=== PATIENT | female | born 1975 ===

== ENCOUNTER 2021-02-05 06:14 | Observation (INO) ==
[~2021-02-05 06:14] MED LIST: Buffered Lidocaine 1% SYRIN 1 ml INTRADERM ONE; Lactated Ringers 1000 ml BAG 1,000 ML IV SCH
[2021-02-05] MEDS ORDERED: ceFAZolin 2 GM PREMIX 2 GM/50 ML BAG ONE (06:46)
[2021-02-05] MEDS ORDERED: Lidocaine 2% PF 5 ML VIAL ONE (07:05)
[2021-02-05] MEDS ORDERED: Propofol 0 MG/0 ML BTL ONE (07:05)
[2021-02-05] MEDS ORDERED: Phenylephrine IV 10 MG/ML 1 ml VIAL ONE ×2 (07:11→07:12)
[2021-02-05] MEDS ORDERED: EPINEPHrine SYR 0.1MG/ML 10 ml SYRINGE ONE (07:11)
[2021-02-05] MEDS ORDERED: fentaNYL 250 mcg/5 ml 50 MCG/ML 5 ml VIAL (250 MCG) ONE (07:15)
[2021-02-05] MEDS ORDERED: Propofol 10 MG/ML 20 ML BTL ONE (07:16)
[2021-02-05] MEDS ORDERED: Midazolam 2 mg/2 ml VIAL 1 mg/ml 2 ml VIAL (2 mg) ONE (07:17)
[2021-02-05] MEDS ORDERED: Rocuronium 50 mg VIAL 10 mg/ml 5 ml VIAL (50 mg) ONE (07:19)
[2021-02-05] MEDS ORDERED: ROPIVACAINE 5 MG/ML 30 ML BTL (0.5%) ONE (07:33)
[2021-02-05] MEDS ORDERED: Phenylephrine 40 mcg/mL 10mL (400mcg) SYRINGE ONE (08:08)
[2021-02-05] MEDS ORDERED: DiMENhydriNATE IV 50 mg/ml 1 ml VIAL IV PUSH PRN (08:16)
[2021-02-05] MEDS ORDERED: Naloxone 0.4 mg VIAL 0.4 mg/ml 1 ml VIAL IV PRN (08:16)
[2021-02-05] MEDS ORDERED: diPHENhydraMINE IV 50 MG/ML 1 ml VIAL (BENADRYL) IV PRN ×2 (08:16→09:03)
[2021-02-05] MEDS ORDERED: Dexamethasone IV 4 MG/ML VIAL 1 ml VIAL ONE (08:29)
[2021-02-05] MEDS ORDERED: Ondansetron 4 mg VIAL 2 MG/ML 2 ml VIAL ONE (08:29)
[2021-02-05] MEDS ORDERED: Acetaminophen IV 1 GM/100ML 100 ML ONE (08:29)
[2021-02-05] MEDS ORDERED: HYDROmorphone 1 MG/1 ML SYRINGE ONE (08:30)
[2021-02-05] MEDS ORDERED: Ondansetron 4 mg VIAL 2 MG/ML 2 ml VIAL IV PRN (09:03)
[2021-02-05] MEDS ORDERED: oxyCODONE/Acetamin 5/325 mg TAB PO PRN (09:03)
[2021-02-05] MEDS ORDERED: Lactulose 30 ml UDC PO PRN (09:03)
[2021-02-05] MEDS ORDERED: Magnesium Hydroxide LIQ 30 ML UDC PO PRN (09:03)
[2021-02-05] MEDS ORDERED: Morphine 2 MG/ML SYRINGE IV PRN (09:03)
[2021-02-05] MEDS ORDERED: Ondansetron ODT 4 mg TAB 4 MG TAB PO PRN (09:03)
[2021-02-05] MEDS ORDERED: diPHENhydraMINE 25 mg TAB PO PRN (09:03)
[2021-02-05] MEDS ORDERED: Lactated Ringers 1000 ml BAG 1,000 ML IV SCH (10:00)
[2021-02-05] MEDS ORDERED: Levalbuterol HFA INHALER MDI ONE (10:48)
[2021-02-05] MEDS ORDERED: fentaNYL 100 mcg/2 ml 50 MCG/ML VIAL ONE ×2 (11:02→11:46)
[2021-02-05] MEDS: fentaNYL 100 mcg/2 ml 50 MCG/ML VIAL IV PRN ×5 (11:04→11:50)
[2021-02-05 15:46] VITALS: BP 145/81
[2021-02-05] MEDS ORDERED: ceFAZolin 1 GM ADVAN 1 GM in NS 0.9% 50 ML 50 ML IVPB SCH (16:00)
[2021-02-05] MEDS ORDERED: Magnesium Hydroxide LIQ 30 ML UDC PO SCH (21:00)
[2021-02-06] MEDS ORDERED: Vitamin THERAPEUTIC TAB PO SCH (09:00)
== END 2021-02-05 18:00 | disposition home or self-care (01) ==
LOC: OR 06:14 → SSU 06:14
PROVIDERS: ADMIT Orthopaedic Surgery Adult Reconstructive Orthopaedic Surgery; ATTEND Orthopaedic Surgery Adult Reconstructive Orthopaedic Surgery